=== PATIENT | male | born 1980 | race Caucasian/White ===

== ENCOUNTER 2017-08-21 14:23 | Emergency (ER) | payer BC, OTHER ==
[~2017-08-21] VITALS: Ht 167.6 cm; Wt 81.7 kg
--- NOTE | ~2017-08-21 | EKG ---
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 08/22/17 0821 1431 1431 Robert Sparks MD, FACC /EPI
[2017-08-21] MEDS ORDERED: CLONAZEPAM 1 MG1 M1 PO (14:28)
[2017-08-21] MEDS ORDERED: PREDNISONE 20 M20 MG PO (14:35)
== END 2017-08-21 15:13 | disposition home or self-care (01) ==
LOC: ER 14:23
DX: R07.9 Chest pain, unspecified (principal); T44.5X5A Adverse effect of predominantly beta-adrenoreceptor agonists, initial encounter; Y92.9 Unspecified place or not applicable